=== PATIENT | male | born 1975 | race Caucasian/White ===

== ENCOUNTER 2017-12-04 10:53 | Emergency (ER) | payer OTHER ==
[~2017-12-04] VITALS: Ht 175.3 cm; Wt 108.9 kg
[2017-12-04] MEDS ORDERED: LIDOCAINE 1% Multi-Dose 20 ML VIAL. IJ ONE (11:30)
--- NOTE | 2017-12-04 11:55 | RAD ---
3 views right hand 12/04/2017 11:07 AM Indication: PUT PALM THROUGH A GLASS WINDOW TODAY Comparison: Not available Findings: No evidence of acute fracture or dislocation is identified. Articular surfaces are uninterrupted. On the lateral most 2 view of the hand there is a small radiopacity projecting over the proximal palmar soft tissues. Overlying dressing material noted. This is not seen in other projections. Finding could relate to the gauze dressing however small radiopaque foreign body cannot be completely excluded. Recommend repeat lateral radiograph without overlying dressings. IMPRESSION: 1. No evidence of acute fracture 2. Small radiopacity projecting over the proximal palmar soft tissues of the hand on lateral view. Overlying dressing also seen. Small radiopaque foreign body not excluded. Recommend repeat radiograph in the absence of overlying dressings. Electronically signed by: Sergio Guidry MD (12/04/2017 11:51 AM) [facility]
[2017-12-04] MEDS ORDERED: TRAM-48 PO (11:57)
--- NOTE | 2017-12-04 11:58 | PHYS DOC ---
Past History Past Medical History: Hypothyroid Past Surgical History: Other Alcohol Use: None Drug Use: None Adult General Chief Complaint Chief Complaint: LACERATION/AVULSION HPI HPI 42-year-old right-handed male patient complaining of a laceration in the right hand after he tried to open an old window complaining of bleeding and pain hypothenar area. Patient denies focal neuro deficit and other injuries. Patient is up-to-date with tetanus immunization. Review of Systems Review of Systems Constitutional: Denies fever or chills [] Eyes: Denies change in visual acuity, redness, or eye pain [] HENT: Denies nasal congestion or sore throat [] Respiratory: Denies cough or shortness of breath [] Cardiovascular: No additional information not addressed in HPI [] GI: Denies abdominal pain, nausea, vomiting, bloody stools or diarrhea [] : Denies dysuria or hematuria [] Musculoskeletal: Denies back pain or joint pain [] Integument: Denies rash or skin lesions, reports laceration [] Neurologic: Denies headache, focal weakness or sensory changes [] Endocrine: Denies polyuria or polydipsia [] All other systems were reviewed and found to be within normal limits, except as documented in this note. Current Medications Current Medications Current Medications Medications (Trade) Dose Ordered Sig/Amada Start Time Stop Time Status Last Admin Dose Admin Lidocaine HCl 20 ml 1X ONCE 12/04/17 11:30 12/04/17 11:31 DC Allergies Allergies Allergies Coded Allergies Type Severity Reaction Last Updated Verified No Known Drug Allergies 10/05/15 No Physical Exam Physical Exam Constitutional: Well developed, well nourished, mild distress, non-toxic appearance. [] HENT: Normocephalic, atraumatic Eyes: PERRLA, EOMI, conjunctiva normal, no discharge. [] Neck: Normal range of motion, no tenderness, supple, no stridor. [] Cardiovascular:Heart rate regular rhythm, no murmur [] Lungs & Thorax: Bilateral breath sounds clear to auscultation [] Extremities: 8 cm irregular laceration in palm of right hand in hypothenar area with mild bleeding without neurovascular deficit, No tenderness, no cyanosis, no clubbing, ROM intact, no edema. [] Neurologic: Alert and oriented X 3, normal motor function, normal sensory function, no focal deficits noted. [] Psychologic: Affect normal, judgement normal, mood normal. [] Current Patient Data Vital Signs Vital Signs Date Time Temp Pulse Resp B/P (MAP) Pulse Ox O2 Delivery O2 Flow Rate FiO2 12/04/17 10:59 98.5 79 18 96 Room Air EKG EKG [] Radiology/Procedures Radiology/Procedures [][address] [address] IMAGING REPORT Signed PATIENT: FAIZA MUNIZ ACCOUNT: [id number] : 1975 LOCATION: ER AGE: 42 SEX: M EXAM STATUS: REG ER ORD. PHYSICIAN: JEANETTE GRACIA MD REASON: sedation, evaluation for foreign body PROCEDURE: HAND RIGHT 3V 3 views right hand 12/04/2017 11:07 AM Indication: PUT PALM THROUGH A GLASS WINDOW TODAY Comparison: Not available Findings: No evidence of acute fracture or dislocation is identified. Articular surfaces are uninterrupted. On the lateral most 2 view of the hand there is a small radiopacity projecting over the proximal palmar soft tissues. Overlying dressing material noted. This is not seen in other projections. Finding could relate to the gauze dressing however small radiopaque foreign body cannot be completely excluded. Recommend repeat lateral radiograph without overlying dressings. IMPRESSION: 1. No evidence of acute fracture 2. Small radiopacity projecting over the proximal palmar soft tissues of the hand on lateral view. Overlying dressing also seen. Small radiopaque foreign body not excluded. Recommend repeat radiograph in the absence of overlying dressings. Electronically signed by: Sergio Moura MD (12/04/2017 11:51 AM) [facility] DICTATED AND SIGNED BY: SERGIO MOURA MD DATE: 12/04/17 1147 CC: JEANETTE GRACIA MD; DESI SEO DO, MPH ~ Course & Med Decision Making Course & Med Decision Making Pertinent Imaging studies reviewed. (See chart for details) Evaluation of patient in ER showed 42-year-old female patient with laceration of right hand. Irrigation and cleaning of the wound was done and extensive exploration after applying anesthesia for foreign body was performed without finding foreign body. Patient was instructed to follow-up with his primary care physician for removal of stitches in 12-10 days. [] Dragon Disclaimer Dragon Disclaimer This electronic medical record was generated, in whole or in part, using a voice recognition dictation system. Laceration Repair Lac Repair Indication: [Right hand laceration] Procedure: The patient was placed in the appropriate position and anesthesia around the [hypothenar area of right hand with 10 mL of 1% lidocaine]. The area was then [irrigated extensively and checked for foreign body without finding foreign body]. The laceration was [was repaired in 1 layer with 9 sutures of 4- 0 nylon]. [ADDITIONAL LACS] The wound area was then dressed with nonadhesive dressing Total repaired wound length: [TOTAL REPAIR LENGTH]. Other Items: 8 cm The patient tolerated the procedure [well]. Complications: [none]. Departure Departure: Impression: Primary Impression: Laceration of right hand Disposition: HOME, SELF-CARE (At 1154) Condition: IMPROVED Referrals: DESI SEO DO, MPH (PCP) Patient Instructions: Sutured Wound Care Additional Instructions: Keep wound clean and dry Follow-up with your physician in 12-14 days for suture removal Return to ER if not getting better Scripts Tramadol Hcl (ULTRAM) 50 Mg Tablet 50 MG PO PRN Q6HRS PRN for PAIN, #14 TAB Prov: JEANETTE GRACIA MD 12/04/17 JEANETTE GRACIA MD Dec 04, 2017 11:58
[2017-12-04 12:02] VITALS: BP 127/69
== END 2017-12-04 12:03 | disposition home or self-care (01) ==
LOC: ER 10:53
DX: S61.411A Laceration without foreign body of right hand, initial encounter (principal); E03.9 Hypothyroidism, unspecified; W45.8XXA Other foreign body or object entering through skin, initial encounter; Y93.89 Activity, other specified; Y99.8 Other external cause status; Y92.89 Other specified places as the place of occurrence of the external cause
CPT/HCPCS: 12004; 73130; 99284-25